=== PATIENT | female | born 1960 | race Caucasian/White ===

== ENCOUNTER 2016-07-24 22:42 | Emergency (ER) | payer OTHER ==
[~2016-07-24] VITALS: Ht 154.9 cm; Wt 78.2 kg
[~2016-07-24 22:42] MED LIST: ALL DAY ALLERGY10 MG PO; ALLEGRA ALLERG180 MG PO; AMBIEN10 MG PO; ATROVENT 0.06%15 ML BOTH NARES; AUGMENTIN875 MG PO; BENTYL10 MG PO; BUPRENORPHIN-N1 EACH SL; BUPROPION XL300 MG PO; BUTALB-APAP-CA1 EACH PO; CARVEDILOL3.125 MG PO; CELEBREX100 MG PO; CHOLESTYRAMINE P4 GM PO; CITRATE OF MAG296 ML PO; CLOBETASOL PROP60 GM TP; COLACE100 MG PO; DIAZEPAM5 MG PO; DICYCLOMINE HCL10 MG PO; DILAUDID2 MG PO; DILAUDID4 MG PO; DILAUDID8 MG PO; DIVALPROEX SOD125 M1 PO; DURAGESIC100 MCG TD; EFFEXOR75 MG PO; ERGOCALCIF50000 UNIT PO; FENTANYL1 EAC3 TD; FEXOFENADINE H180 MG PO; FIORICET 50-301 EACH PO; FLAGYL500 MG PO; FLECTOR 1.3%1 PATC1 TD; FLEXERIL10 MG PO; FLONASE16 G1 BOTH NARES; FUROSEMIDE20 MG PO; FUROSEMIDE40 MG PO; GABAPENTIN300 MG PO; HYDROMORPHONE HC4 MG PO; IPRATROPIUM BRO15 ML BOTH NARES; LASIX20 MG PO; LISINOPRIL10 MG PO; LISINOPRIL2.5 MG PO; LISINOPRIL5 MG PO; LOTRISONE15 GM TP; METRONIDAZOLE500 MG PO; MONTELUKAST SOD10 MG PO; MORPHINE SULFAT15 M1 PO; MORPHINE SULFAT15 MG PO; MOTRIN800 MG PO; NAPROSYN500 MG PO; NO MEDS.; NYSTATIN15 GM TP; OMEPRAZOLE40 M1 PO; ONDANSETRON HCL8 MG PO; ONDANSETRON ODT4 MG PO; ONDANSETRON ODT8 MG PO; PANTOPRAZOLE SO40 MG PO; POTASSIUM CHLO20 ME1 PO; PREVALITE PACKET4 GM PO; PROBIOTIC1 EAC1 PO; PROMETHAZINE HC25 M1 PO; PROPRANOLOL HCL60 MG PO; RANITIDINE HCL150 MG PO; RELPAX40 MG PO; SERTRALINE HCL100 MG PO; SINGULAIR10 MG PO; SOMA350 M1 PO; SUBOXONE 8 MG-1 EAC2 SL; TIZANIDINE HCL4 M1 PO; TIZANIDINE HCL4 MG PO; TOPAMAX100 MG PO; TOPIRAMATE100 MG PO; VALIUM5 MG PO; VENLAFAXINE HC150 M1 PO; VENLAFAXINE HCL75 M3 PO; VITAMIN D50000 UNI4 PO; VIVELLE-DOT0.0375 MG TD; VOLTAREN75 MG PO; ZANAFLEX4 M1 PO; ZITHROMAX250 MG PO; ZOFRAN ODT4 MG PO; ZOFRAN8 MG PO; ZOLOFT50 M1 PO; ZOLPIDEM TARTRAT5 MG PO; ZYRTEC10 M2 PO; ZYRTEC10 M3 PO
[2016-07-24 23:28] LABS: HEMATOCRIT 39.4 % (36.0-46.0); MCH 30.4 PG (29.0-34.0); MCV 86.8 FL (83-99); PLATELET COUNT 218 K/uL (156-360); RBC DIS.WIDTH-CV 13.1 % (11.8-14.6); RBC DIS.WIDTH-SD 40.5 % (39-53); RED BLOOD COUNT 4.54 M/uL (3.80-5.20); WHITE BLOOD COUNT 9.3 K/uL (4.1-10.2)
[2016-07-24 23:38] LABS: CHLORIDE 102 mEq/L (99-109); POTASSIUM 4.2 mEq/L (3.7-5.4); SODIUM 135 mEq/L (136-147)
[2016-07-24 23:40] LABS: GLUCOSE 106 mg/dL (70-99)
[2016-07-24 23:41] LABS: ANION GAP 12 MEQ/L (2-14)
[2016-07-24 23:44] LABS: GFR ESTIMATE (CALCULATED) > 59 mL/min/
[2016-07-24 23:45] LABS: UREA NITROGEN (BUN) 20 mg/dL (9-23)
[2016-07-24 23:47] LABS: TROP-I INTERPRETATION NEGATIVE; TROPONIN-I 0.01 ng/mL (0.0-0.30)
[2016-07-25 00:22] LABS: TOTAL BILIRUBIN 0.3 mg/dL (0.0-1.0)
[2016-07-25 00:29] LABS: ALKALINE PHOSPHATASE 82 IU/L (3-129)
[2016-07-25 00:31] LABS: CK-MB 3.7 ng/mL (0.0-4.9)
[2016-07-25 00:32] LABS: CREATINE KINASE 81 IU/L (1-294); DIRECT BILIRUBIN 0.1 mg/dL (0.0-0.3); TOTAL CK 81 IU/L (1-294)
[2016-07-25 01:48] LABS: ADD MIUA? NO; BILIRUBIN NEGATIVE; BLOOD NEGATIVE; COLOR COLORLESS ((YELLOW)); GLUCOSE (STRIP) NEGATIVE; KETONES NEGATIVE; LEUKOCYTES NEGATIVE; NITRITE NEGATIVE; PROTEIN (STRIP) NEGATIVE; SPECIFIC GRAVITY 1.005 (1.000-1.030); UCUL ADDED? NO; UROBILINOGEN 0.2 MG/DL (0.2-1.0)
[2016-07-25] MEDS ORDERED: OXYCODONE HCL10 MG PO (03:23)
[2016-07-25 03:39] VITALS: BP 128/64
== END 2016-07-25 03:48 | disposition home or self-care (01) ==
LOC: EME 22:42
PROVIDERS: Emergency Medicine
DX: R25.2 Cramp and spasm (principal); I10 Essential (primary) hypertension; F32.9 Major depressive disorder, single episode, unspecified; I25.2 Old myocardial infarction
CPT/HCPCS: 71020; 80048; 80076; 81003; 82550; 82550 91; 82553; 84484; 85027; 93005; 93970; 99281; 99284

== ENCOUNTER 2016-09-08 01:44 | Emergency (ER) | payer OTHER ==
[~2016-09-08] VITALS: Ht 154.9 cm; Wt 78.3 kg
[~2016-09-08 01:44] MED LIST changes: +OXYCODONE HCL10 MG PO
[2016-09-08] MEDS ORDERED: TRAMADOL HCL50 MG PO (04:20)
[2016-09-08 04:42] VITALS: BP 99/67
== END 2016-09-08 04:46 | disposition home or self-care (01) ==
LOC: EME 01:44
DX: S80.02XA Contusion of left knee, initial encounter (principal); W18.30XA Fall on same level, unspecified, initial encounter; Y92.512 Supermarket, store or market as the place of occurrence of the external cause
CPT/HCPCS: 73564; 99281; 99284; J2270

== ENCOUNTER 2016-09-10 23:43 | Emergency (ER) | payer OTHER ==
[~2016-09-10] VITALS: Ht 154.9 cm; Wt 74.1 kg
[~2016-09-10 23:43] MED LIST changes: +TRAMADOL HCL50 MG PO
[2016-09-11] MEDS ORDERED: TORADOL10 MG PO (01:47)
[2016-09-11 02:32] VITALS: BP 118/74
== END 2016-09-11 02:33 | disposition home or self-care (01) ==
LOC: EME 23:43
DX: S82.002D Unspecified fracture of left patella, subsequent encounter for closed fracture with routine healing (principal)
CPT/HCPCS: 99281; 99283

== ENCOUNTER 2017-01-01 21:14 | Emergency (ER) | payer OTHER ==
[~2017-01-01] VITALS: Ht 154.9 cm; Wt 77.6 kg
[~2017-01-01 21:14] MED LIST changes: +TORADOL10 MG PO
[2017-01-02 00:21] VITALS: BP 145/90
== END 2017-01-02 00:22 | disposition home or self-care (01) ==
LOC: EME 21:14
PROC: 0HQ1XZZ Repair Face Skin, External Approach (ICD-10-PCS; principal; 2017-01-01)
DX: S01.81XA Laceration without foreign body of other part of head, initial encounter (principal); W01.0XXA Fall on same level from slipping, tripping and stumbling without subsequent striking against object, initial encounter; H91.90 Unspecified hearing loss, unspecified ear; I10 Essential (primary) hypertension
CPT/HCPCS: 99281; 99284

== ENCOUNTER → 2017-06-04 | Outpatient (CLI) | payer OTHER ==
[~2017-06-04] MED LIST changes: +CEFTIN500 MG PO; +KENALOG,ARISTOC15 G2 TP; +PAMELOR75 MG PO; +SKELAXIN800 MG PO
== END | disposition home or self-care (01) ==
LOC: AMB 13:44
PROC: 0T9B70Z Drainage of Bladder with Drainage Device, Via Natural or Artificial Opening (ICD-10-PCS; principal; 2017-06-04)
DX: R30.0 Dysuria (principal); R39.14 Feeling of incomplete bladder emptying; Z87.440 Personal history of urinary (tract) infections; H91.93 Unspecified hearing loss, bilateral; I11.0 Hypertensive heart disease with heart failure; I50.9 Heart failure, unspecified; I25.810 Atherosclerosis of coronary artery bypass graft(s) without angina pectoris; I25.2 Old myocardial infarction
CPT/HCPCS: 87086; 99212

== ENCOUNTER 2017-07-03 08:04 | Day surgery (SDC) | payer OTHER ==
[~2017-07-03] VITALS: Ht 154.9 cm; Wt 72.5 kg
[~2017-07-03 08:04] MED LIST changes: +COMPAZINE10 MG PO; +PARAFON FORTE500 MG PO; +ZUBSOLV 8.6-2.1 EACH SL
[2017-07-03 08:32] VITALS: BP 147/69
[2017-07-03 13:15] VITALS: BP 132/76
[2017-07-03 14:15] VITALS: BP 132/64
== END 2017-07-03 14:34 | disposition home or self-care (01) ==
LOC: SDC 08:04
PROC: 0T7D8ZZ Dilation of Urethra, Via Natural or Artificial Opening Endoscopic (ICD-10-PCS; principal; 2017-07-03)
DX: N35.9 Urethral stricture, unspecified (principal); Z87.440 Personal history of urinary (tract) infections; R30.0 Dysuria; R00.0 Tachycardia, unspecified; H91.90 Unspecified hearing loss, unspecified ear; I42.9 Cardiomyopathy, unspecified
CPT/HCPCS: J0690; J1100; J1170; J1885; J2250; J2405; J3010; Q0175

== ENCOUNTER 2017-07-26 15:20 | Emergency (ER) | payer OTHER ==
[~2017-07-26] VITALS: Ht 154.9 cm; Wt 79.6 kg
[2017-07-26 16:41] LABS: HEMATOCRIT 44.6 % (36.0-46.0); HEMOGLOBIN 15.9 G/DL (11.9-15.5); MCH 31.2 PG (29.0-34.0); MCHC 35.7 G/DL (30.0-36.0); MCV 87.5 FL (83-99); PLATELET COUNT 365 K/uL (156-360); RBC DIS.WIDTH-CV 12.8 % (11.8-14.6); RBC DIS.WIDTH-SD 41.3 % (39-53); WHITE BLOOD COUNT 13.5 K/uL (4.1-10.2)
[2017-07-26 17:08] LABS: ALBUMIN 4.6 G/DL (3.2-4.8); ALKALINE PHOSPHATASE 88 IU/L (3-129); ALT (GPT) 85 IU/L (3-49); AST (GOT) 48 IU/L (2-34); CHLORIDE 103 MEQ/L (99-109); CREATININE 1.1 MG/DL (0.6-1.3); GFR ESTIMATE (CALCULATED) 54 mL/min/; GLUCOSE 107 mg/dL (70-99); POTASSIUM 3.4 MEQ/L (3.7-5.4); SODIUM 137 MEQ/L (136-147); TOTAL BILIRUBIN 0.5 MG/DL (0.0-1.0); TOTAL PROTEIN 7.7 G/DL (6.4-8.3); UREA NITROGEN (BUN) 20 mg/dL (9-23)
[2017-07-26] MEDS ORDERED: DILAUDID2 MG PO (18:14)
[2017-07-26] MEDS ORDERED: ZOFRAN ODT4 MG PO (20:13)
[2017-07-26] MEDS ORDERED: ZANTAC150 MG PO (20:13)
[2017-07-26 20:46] LABS: APPEARANCE SL.HAZY ((CLEAR)); BILIRUBIN NEGATIVE; BLOOD NEGATIVE; COLOR YELLOW ((YELLOW)); GLUCOSE (STRIP) NEGATIVE; KETONES NEGATIVE; LEUKOCYTES MODERATE; NITRITE NEGATIVE; PROTEIN (STRIP) NEGATIVE; SPECIFIC GRAVITY 1.026 (1.000-1.030); UROBILINOGEN 0.2 MG/DL (0.2-1.0)
[2017-07-26 21:03] LABS: BACTERIA RARE /HPF; EPITHELIAL CELLS RARE /HPF; MUCUS TRACE /LPF; UCUL ADDED? YES; WHITE BLOOD CELLS TNTC /HPF (0-5)
[2017-07-26 21:20] VITALS: BP 131/80
== END 2017-07-26 21:35 | disposition home or self-care (01) ==
LOC: EME 15:20
PROVIDERS: Nurse Practitioner Family
DX: B34.9 Viral infection, unspecified (principal); R10.13 Epigastric pain; I10 Essential (primary) hypertension; I25.2 Old myocardial infarction; F32.9 Major depressive disorder, single episode, unspecified; Z90.49 Acquired absence of other specified parts of digestive tract; Z90.710 Acquired absence of both cervix and uterus; Z88.8 Allergy status to other drugs, medicaments and biological substances
CPT/HCPCS: 71046; 80053; 81003; 85027; 87086; 87502; 93005; 99281; 99285; J1885; J2405; J7030

== ENCOUNTER 2017-07-29 10:23 | Emergency (ER) | payer OTHER ==
[~2017-07-29] VITALS: Ht 154.9 cm; Wt 72.7 kg
[~2017-07-29 10:23] MED LIST changes: +ZANTAC150 MG PO
[2017-07-29 10:58] LABS: HEMOGLOBIN 15.9 G/DL (11.9-15.5); MCH 30.6 PG (29.0-34.0); MCHC 34.6 G/DL (30.0-36.0); MCV 88.6 FL (83-99); PLATELET COUNT 352 K/uL (156-360); RBC DIS.WIDTH-CV 12.8 % (11.8-14.6); RBC DIS.WIDTH-SD 41.6 % (39-53); RED BLOOD COUNT 5.19 M/uL (3.80-5.20); WHITE BLOOD COUNT 10.9 K/uL (4.1-10.2)
[2017-07-29 11:09] LABS: ALBUMIN 4.8 g/dL (3.2-4.8); CHLORIDE 108 mEq/L (99-109); POTASSIUM 3.9 mEq/L (3.7-5.4); SODIUM 142 mEq/L (136-147)
[2017-07-29 11:12] LABS: GLUCOSE 123 mg/dL (70-99); TOTAL PROTEIN 8.1 g/dL (6.4-8.3)
[2017-07-29 11:15] LABS: ALKALINE PHOSPHATASE 107 IU/L (3-129); GFR ESTIMATE (CALCULATED) > 59 mL/min/
[2017-07-29 11:16] LABS: UREA NITROGEN (BUN) 12 mg/dL (9-23)
[2017-07-29 11:17] LABS: AST (GOT) 25 IU/L (2-34)
[2017-07-29 11:18] LABS: ALT (GPT) 56 IU/L (3-49)
[2017-07-29 13:17] LABS: APPEARANCE CLEAR ((CLEAR)); BILIRUBIN NEGATIVE; BLOOD NEGATIVE; COLOR YELLOW ((YELLOW)); GLUCOSE (STRIP) NEGATIVE; KETONES 5; LEUKOCYTES TRACE; NITRITE NEGATIVE; PROTEIN (STRIP) 30; SPECIFIC GRAVITY 1.024 (1.000-1.030); UROBILINOGEN 0.2 MG/DL (0.2-1.0)
[2017-07-29 13:21] LABS: BACTERIA NONE SEEN /HPF; EPITHELIAL CELLS RARE /HPF; MUCUS TRACE /LPF; RED BLOOD CELLS 0-5 /HPF (0-5); UCUL ADDED? YES
[2017-07-29] MEDS ORDERED: BACTRIM,SEPT1 TABLET PO (14:41)
[2017-07-29 16:20] VITALS: BP 191/72
== END 2017-07-29 16:25 | disposition home or self-care (01) ==
LOC: EME 10:23
DX: N39.0 Urinary tract infection, site not specified (principal); I11.0 Hypertensive heart disease with heart failure; I50.9 Heart failure, unspecified; I25.2 Old myocardial infarction; F32.9 Major depressive disorder, single episode, unspecified; Z88.5 Allergy status to narcotic agent; Z88.8 Allergy status to other drugs, medicaments and biological substances
CPT/HCPCS: 74177; 80053; 81003; 85027; 87086; 99281; 99284; J1885; J2405; J7030; J7040

== ENCOUNTER 2017-08-01 04:22 | Inpatient (IN) | payer OTHER ==
[~2017-08-01] VITALS: Ht 154.9 cm; Wt 76.6 kg
[~2017-08-01 04:22] MED LIST changes: -ATROVENT 0.06%15 ML BOTH NARES; +BACTRIM,SEPT1 TABLET PO
[2017-08-01 05:34] LABS: ALBUMIN 4.7 g/dL (3.2-4.8)
[2017-08-01 05:35] LABS: CHLORIDE 105 mEq/L (99-109); POTASSIUM 3.4 mEq/L (3.7-5.4); SODIUM 141 mEq/L (136-147)
[2017-08-01 05:37] LABS: GLUCOSE 103 mg/dL (70-99); TOTAL PROTEIN 8.3 g/dL (6.4-8.3)
[2017-08-01 05:39] LABS: HEMATOCRIT 44.2 % (36.0-46.0); HEMOGLOBIN 15.7 G/DL (11.9-15.5); MCH 31.5 PG (29.0-34.0); MCHC 35.5 G/DL (30.0-36.0); MCV 88.6 FL (83-99); PLATELET COUNT 265 K/uL (156-360); RBC DIS.WIDTH-CV 12.8 % (11.8-14.6); RBC DIS.WIDTH-SD 41.1 % (39-53); RED BLOOD COUNT 4.99 M/uL (3.80-5.20); TOTAL BILIRUBIN 0.8 mg/dL (0.0-1.0); WHITE BLOOD COUNT 9.6 K/uL (4.1-10.2)
[2017-08-01 05:40] LABS: ALKALINE PHOSPHATASE 96 IU/L (3-129)
[2017-08-01 05:41] LABS: CREATININE 0.9 mg/dL (0.6-1.3); GFR ESTIMATE (CALCULATED) > 59 mL/min/
[2017-08-01 05:42] LABS: AST (GOT) 29 IU/L (2-34); UREA NITROGEN (BUN) 8 mg/dL (9-23)
[2017-08-01 05:44] LABS: ALT (GPT) 39 IU/L (3-49); LIPASE 30 U/L (1.0-51.0)
[2017-08-01 06:25] LABS: APPEARANCE SL.HAZY ((CLEAR)); BILIRUBIN NEGATIVE; BLOOD SMALL; COLOR YELLOW ((YELLOW)); GLUCOSE (STRIP) NEGATIVE; KETONES NEGATIVE; LEUKOCYTES MODERATE; NITRITE NEGATIVE; PROTEIN (STRIP) NEGATIVE; SPECIFIC GRAVITY 1.016 (1.000-1.030); UROBILINOGEN 0.2 MG/DL (0.2-1.0)
[2017-08-01 06:35] LABS: BACTERIA RARE /HPF; EPITHELIAL CELLS RARE /HPF; MUCUS 1+ /LPF; RED BLOOD CELLS 0-5 /HPF (0-5); UCUL ADDED? YES; WHITE BLOOD CELLS 30-40 /HPF (0-5)
[2017-08-01 08:34] LABS: MAGNESIUM 2.5 mg/dL (1.3-2.7)
[2017-08-01] MEDS ORDERED: PANTOPRAZOLE SO40 MG PO (10:49)
[2017-08-01] MEDS ORDERED: ZOLPIDEM TARTRA10 MG PO (10:52)
[2017-08-01 14:57] VITALS: BP 169/96
[2017-08-01 20:55] VITALS: BP 145/76
[2017-08-02 00:02] VITALS: BP 158/95
[2017-08-02 05:05] VITALS: BP 166/81
[2017-08-02 07:02] VITALS: BP 134/77
[2017-08-02 07:31] LABS: HEMATOCRIT 36.4 % (36.0-46.0); MCH 30.9 PG (29.0-34.0); MCHC 33.8 G/DL (30.0-36.0); MCV 91.5 FL (83-99); RBC DIS.WIDTH-CV 12.4 % (11.8-14.6); RBC DIS.WIDTH-SD 41.6 % (39-53); WHITE BLOOD COUNT 4.8 K/uL (4.1-10.2)
[2017-08-02 07:34] LABS: HEMOGLOBIN 12.3 G/DL (11.9-15.5); RED BLOOD COUNT 3.98 M/uL (3.80-5.20)
[2017-08-02 07:51] LABS: CHLORIDE 111 MEQ/L (99-109); CREATININE 0.6 MG/DL (0.6-1.3); GFR ESTIMATE (CALCULATED) > 59 mL/min/; GLUCOSE 91 mg/dL (70-99); PLAT.SUFFICIENCY ADEQUATE; POTASSIUM 3.4 MEQ/L (3.7-5.4); SODIUM 138 MEQ/L (136-147); UREA NITROGEN (BUN) 5 mg/dL (9-23)
[2017-08-02 07:56] LABS: PLATELET COUNT 172 K/uL (156-360)
[2017-08-02 12:01] VITALS: BP 175/95
[2017-08-02 15:59] VITALS: BP 165/87
[2017-08-02 20:11] VITALS: BP 165/79
[2017-08-03 01:58] VITALS: BP 133/86
[2017-08-03 04:29] VITALS: BP 140/77
[2017-08-03 07:22] VITALS: BP 142/88
[2017-08-03 10:35] LABS: BASOPHIL (%) 0.5 % (0-1); EOSINOPHIL (%) 1.9 % (0-5); EOSINOPHIL COUNT 0.1 K/uL (0-0.3); HEMATOCRIT 37.5 % (36.0-46.0); HEMOGLOBIN 12.9 G/DL (11.9-15.5); IMMATURE GRANULOCYTE (%) 0.4 % (0.0-0.7); LYMPHOCYTE (%) 22.4 % (15-42); LYMPHOCYTE COUNT 1.3 K/uL (1.0-2.8); MCH 30.5 PG (29.0-34.0); MCHC 34.4 G/DL (30.0-36.0); MCV 88.7 FL (83-99); MONOCYTE (%) 5.4 % (3-12); MONOCYTE COUNT 0.3 K/uL (0-0.8); NEUTROPHIL (%) 69.4 % (45-76); PLATELET COUNT 181 K/uL (156-360); RBC DIS.WIDTH-CV 12.5 % (11.8-14.6); RBC DIS.WIDTH-SD 40.8 % (39-53); RED BLOOD COUNT 4.23 M/uL (3.80-5.20); WHITE BLOOD COUNT 5.7 K/uL (4.1-10.2)
[2017-08-03 11:03] LABS: CHLORIDE 106 MEQ/L (99-109); CREATININE 0.6 MG/DL (0.6-1.3); GFR ESTIMATE (CALCULATED) > 59 mL/min/; GLUCOSE 119 mg/dL (70-99); POTASSIUM 3.3 MEQ/L (3.7-5.4); SODIUM 139 MEQ/L (136-147); UREA NITROGEN (BUN) 4 mg/dL (9-23)
[2017-08-03 16:46] VITALS: BP 136/81
[2017-08-03 17:59] LABS: C DIFF TOXIN NEGATIVE (NEGATIVE)
[2017-08-04 00:32] VITALS: BP 137/81
[2017-08-04 07:00] LABS: BASOPHIL (%) 0.5 % (0-1); EOSINOPHIL COUNT 0.1 K/uL (0-0.3); HEMATOCRIT 40.4 % (36.0-46.0); HEMOGLOBIN 13.8 G/DL (11.9-15.5); IMMATURE GRANULOCYTE (%) 0.5 % (0.0-0.7); LYMPHOCYTE (%) 21.7 % (15-42); LYMPHOCYTE COUNT 1.3 K/uL (1.0-2.8); MCH 30.6 PG (29.0-34.0); MCHC 34.2 G/DL (30.0-36.0); MCV 89.6 FL (83-99); MONOCYTE (%) 5.3 % (3-12); MONOCYTE COUNT 0.3 K/uL (0-0.8); NEUTROPHIL COUNT 4.3 K/uL (1.8-6.4); PLATELET COUNT 193 K/uL (156-360); RBC DIS.WIDTH-CV 12.7 % (11.8-14.6); RED BLOOD COUNT 4.51 M/uL (3.80-5.20); WHITE BLOOD COUNT 6.1 K/uL (4.1-10.2)
[2017-08-04 07:32] LABS: CHLORIDE 105 MEQ/L (99-109); CREATININE 0.7 MG/DL (0.6-1.3); GFR ESTIMATE (CALCULATED) > 59 mL/min/; GLUCOSE 136 mg/dL (70-99); POTASSIUM 3.5 MEQ/L (3.7-5.4); SODIUM 139 MEQ/L (136-147); UREA NITROGEN (BUN) 11 mg/dL (9-23)
[2017-08-04 07:41] VITALS: BP 139/90
[2017-08-04] MEDS ORDERED: COMPAZINE10 MG PO (09:39)
== END 2017-08-04 10:22 | disposition home or self-care (01) | DRG 392 ==
LOC: EME → EDBD 04:22 → 2EASTP 07:31 → EDOF 07:31 → ENRESERV 07:35 → 2EASTP 14:44
PROVIDERS: Emergency Medicine; Internal Medicine
DX: R10.9 Unspecified abdominal pain (principal); R11.2 Nausea with vomiting, unspecified; R19.7 Diarrhea, unspecified; K21.9 Gastro-esophageal reflux disease without esophagitis; E86.0 Dehydration; I25.10 Atherosclerotic heart disease of native coronary artery without angina pectoris; E87.6 Hypokalemia; G89.29 Other chronic pain; I11.0 Hypertensive heart disease with heart failure; H90.5 Unspecified sensorineural hearing loss; I50.9 Heart failure, unspecified; F32.9 Major depressive disorder, single episode, unspecified; I25.2 Old myocardial infarction; Z90.710 Acquired absence of both cervix and uterus; Z82.61 Family history of arthritis; Z82.49 Family history of ischemic heart disease and other diseases of the circulatory system; Z82.3 Family history of stroke
CPT/HCPCS: 74177; 80048; 80053; 81003; 82705; 83605; 83630; 83690; 83735; 85025; 85027; 87040; 87086; 87493; 87506; 99281; 99284; 99285; C9113; J0696; J0780; J1170; J1644; J1885; J2405; J2543; J3480; J7030; J7040; J7050

== ENCOUNTER → 2017-09-04 | Outpatient (CLI) | payer OTHER ==
[~2017-09-04] MED LIST changes: +ZOLPIDEM TARTRA10 MG PO
== END | disposition home or self-care (01) ==
LOC: AMB 11:30
DX: R30.0 Dysuria (principal); N35.9 Urethral stricture, unspecified; Z87.440 Personal history of urinary (tract) infections

== ENCOUNTER 2017-10-28 21:15 | Emergency (ER) | payer OTHER ==
[~2017-10-28] VITALS: Ht 154.9 cm; Wt 94.4 kg
[2017-10-28 21:36] LABS: APPEARANCE CLEAR ((CLEAR)); BILIRUBIN NEGATIVE; BLOOD NEGATIVE; COLOR STRAW ((YELLOW)); GLUCOSE (STRIP) NEGATIVE; KETONES NEGATIVE; LEUKOCYTES TRACE; NITRITE NEGATIVE; PROTEIN (STRIP) NEGATIVE; SPECIFIC GRAVITY 1.005 (1.000-1.030); UROBILINOGEN 0.2 MG/DL (0.2-1.0)
[2017-10-28 21:38] LABS: BACTERIA RARE /HPF; EPITHELIAL CELLS NONE SEEN /HPF; MUCUS NONE SEEN /LPF; RED BLOOD CELLS 0-5 /HPF (0-5); UCUL ADDED? NO; WHITE BLOOD CELLS 0-5 /HPF (0-5)
[2017-10-28 22:16] LABS: HEMATOCRIT 42.3 % (36.0-46.0); HEMOGLOBIN 14.9 G/DL (11.9-15.5); MCH 30.3 PG (29.0-34.0); MCHC 35.2 G/DL (30.0-36.0); MCV 86.2 FL (83-99); PLATELET COUNT 259 K/uL (156-360); RBC DIS.WIDTH-CV 13.1 % (11.8-14.6); RED BLOOD COUNT 4.91 M/uL (3.80-5.20); WHITE BLOOD COUNT 6.3 K/uL (4.1-10.2)
[2017-10-28 22:28] LABS: ALBUMIN 4.4 g/dL (3.2-4.8)
[2017-10-28 22:29] LABS: CHLORIDE 108 mEq/L (99-109); POTASSIUM 3.8 mEq/L (3.7-5.4); SODIUM 140 mEq/L (136-147)
[2017-10-28 22:31] LABS: GLUCOSE 197 mg/dL (70-99); TOTAL PROTEIN 7.8 g/dL (6.4-8.3)
[2017-10-28 22:33] LABS: TOTAL BILIRUBIN 0.3 mg/dL (0.0-1.0)
[2017-10-28 22:34] LABS: ALKALINE PHOSPHATASE 120 IU/L (3-129)
[2017-10-28 22:35] LABS: CREATININE 0.8 mg/dL (0.6-1.3); GFR ESTIMATE (CALCULATED) > 59 mL/min/
[2017-10-28 22:36] LABS: AST (GOT) 35 IU/L (2-34); UREA NITROGEN (BUN) 13 mg/dL (9-23)
[2017-10-28 22:38] LABS: ALT (GPT) 78 IU/L (3-49); LIPASE 37 U/L (1.0-51.0)
[2017-10-28] MEDS ORDERED: ZOFRAN4 MG PO (23:58)
[2017-10-28] MEDS ORDERED: LEVSIN0.125 MG PO (23:58)
[2017-10-29 00:19] VITALS: BP 136/85
== END 2017-10-29 00:20 | disposition home or self-care (01) ==
LOC: EME 21:15
DX: R10.13 Epigastric pain (principal); R11.2 Nausea with vomiting, unspecified; R19.7 Diarrhea, unspecified; I10 Essential (primary) hypertension; I25.2 Old myocardial infarction; H91.90 Unspecified hearing loss, unspecified ear; F32.9 Major depressive disorder, single episode, unspecified; Z86.79 Personal history of other diseases of the circulatory system; Z87.19 Personal history of other diseases of the digestive system; Z90.49 Acquired absence of other specified parts of digestive tract; Z90.710 Acquired absence of both cervix and uterus; Z98.890 Other specified postprocedural states; Z88.6 Allergy status to analgesic agent; Z88.5 Allergy status to narcotic agent; Z88.1 Allergy status to other antibiotic agents; Z88.8 Allergy status to other drugs, medicaments and biological substances
CPT/HCPCS: 74177; 80053; 81003; 83690; 85027; J0780; J1885; J7120

== ENCOUNTER 2017-10-31 08:14 | Emergency (ER) | payer OTHER ==
[~2017-10-31] VITALS: Ht 154.9 cm; Wt 74.8 kg
[~2017-10-31 08:14] MED LIST changes: +LEVSIN0.125 MG PO; +ZOFRAN4 MG PO
[2017-10-31 10:15] LABS: HEMATOCRIT 41.2 % (36.0-46.0); HEMOGLOBIN 14.2 G/DL (11.9-15.5); MCH 30.4 PG (29.0-34.0); MCHC 34.5 G/DL (30.0-36.0); MCV 88.2 FL (83-99); PLATELET COUNT 218 K/uL (156-360); RBC DIS.WIDTH-CV 13.6 % (11.8-14.6); RBC DIS.WIDTH-SD 44.1 % (39-53); RED BLOOD COUNT 4.67 M/uL (3.80-5.20); WHITE BLOOD COUNT 6.8 K/uL (4.1-10.2)
[2017-10-31 10:28] LABS: ALBUMIN 4.2 g/dL (3.2-4.8); CHLORIDE 109 mEq/L (99-109); POTASSIUM 3.3 mEq/L (3.7-5.4); SODIUM 142 mEq/L (136-147)
[2017-10-31 10:30] LABS: TOTAL PROTEIN 7.3 g/dL (6.4-8.3)
[2017-10-31 10:34] LABS: ALKALINE PHOSPHATASE 104 IU/L (3-129); CREATININE 0.8 mg/dL (0.6-1.3); GFR ESTIMATE (CALCULATED) > 59 mL/min/
[2017-10-31 10:35] LABS: UREA NITROGEN (BUN) 9 mg/dL (9-23)
[2017-10-31 10:36] LABS: AST (GOT) 24 IU/L (2-34); GLUCOSE 101 mg/dL (70-99); TOTAL BILIRUBIN 0.5 mg/dL (0.0-1.0)
[2017-10-31 10:37] LABS: ALT (GPT) 52 IU/L (3-49)
[2017-10-31 10:38] LABS: LIPASE 29 U/L (1.0-51.0)
[2017-10-31 10:39] LABS: TROP-I INTERPRETATION NEGATIVE; TROPONIN-I 0.02 ng/mL (0.0-0.30)
[2017-10-31 11:46] LABS: APPEARANCE CLEAR ((CLEAR)); BILIRUBIN NEGATIVE; BLOOD NEGATIVE; COLOR YELLOW ((YELLOW)); GLUCOSE (STRIP) NEGATIVE; KETONES NEGATIVE; LEUKOCYTES TRACE; NITRITE NEGATIVE; PROTEIN (STRIP) NEGATIVE; SPECIFIC GRAVITY 1.009 (1.000-1.030); UROBILINOGEN 0.2 MG/DL (0.2-1.0)
[2017-10-31 11:48] LABS: BACTERIA NONE SEEN /HPF; EPITHELIAL CELLS NONE SEEN /HPF; MUCUS TRACE /LPF; RED BLOOD CELLS 0-5 /HPF (0-5); UCUL ADDED? NO; WHITE BLOOD CELLS 0-5 /HPF (0-5)
[2017-10-31 13:39] LABS: TROP-I INTERPRETATION NEGATIVE; TROPONIN-I < 0.01 ng/mL (0.0-0.30)
[2017-10-31] MEDS ORDERED: ZOFRAN ODT4 MG PO (13:43)
[2017-10-31] MEDS ORDERED: BENTYL10 MG PO (13:43)
[2017-10-31 14:01] VITALS: BP 142/94
== END 2017-10-31 14:02 | disposition home or self-care (01) ==
LOC: EME 08:14
PROVIDERS: Physician Assistant
DX: R19.7 Diarrhea, unspecified (principal); R00.0 Tachycardia, unspecified; I10 Essential (primary) hypertension; I25.2 Old myocardial infarction; H91.90 Unspecified hearing loss, unspecified ear; F32.9 Major depressive disorder, single episode, unspecified; Z86.79 Personal history of other diseases of the circulatory system; Z87.19 Personal history of other diseases of the digestive system; Z98.890 Other specified postprocedural states; Z90.49 Acquired absence of other specified parts of digestive tract; Z90.710 Acquired absence of both cervix and uterus; Z88.6 Allergy status to analgesic agent; Z88.5 Allergy status to narcotic agent; Z88.1 Allergy status to other antibiotic agents; Z88.8 Allergy status to other drugs, medicaments and biological substances
CPT/HCPCS: 71046; 80053; 81003; 83630; 83690; 84484; 85027; 87493; 87506; 93005; 99281; 99285; J1885; J2405; J3010; J7030